=== PATIENT | female | born 1945 | race Caucasian/White ===

== ENCOUNTER → 2019-01-15 | Outpatient (CLI) | payer OTHER ==
[~2019-01-15] MED LIST: FOLI1TAB15 PO; GLIM1TAB3 PO; METF-446 PO; MULT-415 PO; PRAV20TA4 PO; TOPI25TA48 PO; WARF2.5T85 PO
== END | disposition home or self-care (01) ==
LOC: RAH 12:40
PROVIDERS: ATTEND Nurse Practitioner Adult Health
DX: M79.605 Pain in left leg (principal); M25.552 Pain in left hip
CPT/HCPCS: 73502; 93971

== ENCOUNTER 2019-12-20 09:52 | Inpatient (IN) | payer OTHER ==
[~2019-12-20] VITALS: Ht 162.6 cm; Wt 129.7 kg
[~2019-12-20 09:52] MED LIST changes: +GLIM1TAB18 PO; -GLIM1TAB3 PO
[2019-12-20 10:46] LABS: BASOPHILS % (AUTO) 0.4 % (0.0-5.0); EOSINOPHILS % (AUTO) 1.8 % (0.0-8.0); HEMATOCRIT 35.1 % (36-48); LYMPHOCYTES % (AUTO) 32.3 % (21.0-51.0); MEAN CORPUSCULAR HEMOGLOBIN 37.3 pg (27.0-33.0); MEAN CORPUSCULAR VOLUME 112.9 fL (79-99); MONOCYTES % (AUTO) 15.8 % (3.0-13.0); NEUTROPHILS % (AUTO) 49.5 % (40.0-77.0); PLATELET COUNT (AUTO) 157 K/uL (130-400); RED BLOOD CELL COUNT(AUTO) 3.11 MIL/uL (4.00-5.50); RED CELL DISTRIBUTION WIDTH 15.4 % (11.0-15.5); WHITE BLOOD COUNT (AUTO) 5.1 K/uL (4.8-10.8)
[2019-12-20 10:55] LABS: CREATININE 1.1 mg/dL (0.5-1.5); POTASSIUM 4.2 mmol/L (3.5-5.1)
[2019-12-20 10:59] LABS: ALBUMIN 2.9 g/dL (3.5-5.0); BILIRUBIN,DIRECT 0.3 mg/dL (0.0-0.3); TOTAL PROTEIN, SERUM 7.1 g/dL (6.0-8.3)
[2019-12-20 11:53] LABS: PARTIAL THROMBOPLASTIN TIME 71.1 SEC (26.3-35.5)
[2019-12-20 11:59] LABS: INR > 7.00 (0.85-1.15); PROTHROMBIN TIME > 63.0 SEC (9.6-11.6)
[2019-12-20] MEDS ORDERED: PHYTONADIONE 10 MG/1 ML AMP ONE (12:15)
[2019-12-20] MEDS ORDERED: HYDROCODONE/ACETAMINOPHEN 5/325 MG TAB PO PRN (13:15)
[2019-12-20] MEDS ORDERED: ONDANSETRON HCL 4 MG/2 ML VIAL IV PRN (13:15)
[2019-12-20] MEDS ORDERED: ACETAMINOPHEN 325 MG TAB PO PRN (13:15)
[2019-12-20] MEDS ORDERED: NITROGLYCERIN 0.4 MG SL TAB SL PRN (13:15)
[2019-12-20] MEDS ORDERED: LACTULOSE 20 GM/30 ML UDCUP PO PRN (13:15)
[2019-12-20 13:19] LABS: APPEARANCE,URINE Cloudy (CLEAR); BILIRUBIN,URINE Small (NEGATIVE); COLOR,URINE Dark Yellow (YELLOW); GLUCOSE, URINE (UA) Negative (NEGATIVE); KETONES,URINE Trace mg/dL (NEGATIVE); LEUKOCYTE ESTERASE ,URINE Trace (NEGATIVE); NITRATE,URINE Negative (NEGATIVE); OCCULT BLOOD,URINE Large (NEGATIVE); PROTEIN,URINE Trace mg/dL (NEGATIVE)
[2019-12-20 13:55] LABS: URIC ACID CRYSTALS,URINE Moderate /LPF (None Seen)
[2019-12-20 13:56] LABS: BACTERIA,URINE Moderate /HPF (None Seen)
[2019-12-20 13:57] LABS: CALCIUM OXALATE CRYSTALS,UR Few /LPF (None Seen); SQUAMOUS EPITHELIAL CELL,UR 30-50 /HPF (0-2)
[2019-12-20 14:15] VITALS: BP 123/89
[2019-12-20] MEDS ORDERED: LINA5TAB PO (16:06)
[2019-12-20] MEDS ORDERED: GLIM2TAB30 PO (16:06)
[2019-12-20] MEDS ORDERED: MECO10005 PO (16:06)
[2019-12-20] MEDS ORDERED: GLUC-145 PO (16:06)
[2019-12-20] MEDS ORDERED: MV-M1TAB20 PO (16:06)
[2019-12-20] MEDS ORDERED: METF-446 PO (16:06)
[2019-12-20] MEDS ORDERED: OMEP20TA2 PO (16:06)
--- NOTE | 2019-12-20 16:11 | NUR ---
SPOKE WITH PUJA FROM DR. VELASQUEZ OFFICE, MADE AWARE OF PENDING CONSULT
[2019-12-20 16:48] VITALS: BP 130/61
[2019-12-20] MEDS ORDERED: FAMOTIDINE 20MG TAB 20 MG TAB ONE (18:51)
[2019-12-20] MEDS: FAMOTIDINE 20MG TAB 20 MG TAB PO SCH (19:41)
[2019-12-20 20:00] VITALS: BP 116/54
[2019-12-21] VITALS: BP 139/64
[2019-12-21 04:00] VITALS: BP 123/69
[2019-12-21 05:38] LABS: BASOPHILS % (AUTO) 0.5 % (0.0-5.0); EOSINOPHILS % (AUTO) 3.2 % (0.0-8.0); HEMATOCRIT 31.6 % (36-48); LYMPHOCYTES % (AUTO) 32.5 % (21.0-51.0); MEAN CORPUSCULAR HGB CONC 33.2 g/dL (32.0-36.0); MEAN CORPUSCULAR VOLUME 111.3 fL (79-99); MONOCYTES % (AUTO) 17.4 % (3.0-13.0); NEUTROPHILS % (AUTO) 46.2 % (40.0-77.0); PLATELET COUNT (AUTO) 142 K/uL (130-400); RED BLOOD CELL COUNT(AUTO) 2.84 MIL/uL (4.00-5.50); RED CELL DISTRIBUTION WIDTH 15.1 % (11.0-15.5); WHITE BLOOD COUNT (AUTO) 4.4 K/uL (4.8-10.8)
[2019-12-21 05:58] LABS: POTASSIUM 4.1 mmol/L (3.5-5.1)
[2019-12-21 05:59] LABS: PROTHROMBIN TIME > 63.0 SEC (9.6-11.6)
[2019-12-21 06:00] LABS: INR > 7.00 (0.85-1.15)
--- NOTE | 2019-12-21 06:05 | NUR ---
paged hospitalist for critical value PT of 63 and INR greater than 7. pending call back
--- NOTE | 2019-12-21 07:50 | NUR ---
ASSESSMENT PT IS AAOX3, DENIES CP DENIES SOB DENIES NV NO COMPLAINTS AT THIS TIME, RESTING SITTING UPRIGHT IN BED, CALL LIGHT WITHIN REACH.
[2019-12-21 08:30] VITALS: BP 136/76
--- NOTE | 2019-12-21 11:00 | NUR ---
DR ALCALA ROUNDED SAW PATIENT, ORDERS RECEIVED
[2019-12-21] MEDS: INSULIN HUMULIN R 100 UNIT/ML 3ML SQ SCH ×3 (11:30→20:24)
[2019-12-21] MEDS ORDERED: PHYTONADIONE 10 MG/1 ML AMP IM SCH (11:30)
[2019-12-21] MEDS: CYANOCOBALAMIN (VITAMIN B-12) 1,000 MCG TABLET PO SCH (12:21)
[2019-12-21] MEDS: FOLIC ACID 1 MG TABLET PO SCH (12:21)
[2019-12-21] MEDS: MULTIVITAMIN TABLET PO SCH (12:21)
[2019-12-21 12:56] VITALS: BP 130/66
[2019-12-21 16:50] VITALS: BP 122/63
[2019-12-21] MEDS: FAMOTIDINE 20MG TAB 20 MG TAB PO SCH (19:32)
[2019-12-21 20:19] VITALS: BP 127/72
[2019-12-22 00:20] VITALS: BP 123/66
--- NOTE | 2019-12-22 01:00 | NUR ---
TRANSFER OF CARE REPORT RECEIVED FROM SUE CRUZ TO ASSUME CARE OF PT. PT SLEEPING ON THE RECLINED ON ROUNDS, SYMMETRICAL CHEST EXPANSION, NO SIGNS OF DISCOMFORT. RUNNING NSR IN THE 80'S IN THE MONITOR, NO ECTOPIES NOTED.
[2019-12-22 04:20] VITALS: BP 94/60
[2019-12-22 06:27] LABS: BASOPHILS % (AUTO) 0.4 % (0.0-5.0); EOSINOPHILS % (AUTO) 2.6 % (0.0-8.0); HEMATOCRIT 32.4 % (36-48); LYMPHOCYTES % (AUTO) 32.5 % (21.0-51.0); MEAN CORPUSCULAR HEMOGLOBIN 36.3 pg (27.0-33.0); MEAN CORPUSCULAR VOLUME 109.8 fL (79-99); MONOCYTES % (AUTO) 16.4 % (3.0-13.0); NEUTROPHILS % (AUTO) 47.9 % (40.0-77.0); PLATELET COUNT (AUTO) 154 K/uL (130-400); RED BLOOD CELL COUNT(AUTO) 2.95 MIL/uL (4.00-5.50); RED CELL DISTRIBUTION WIDTH 15.2 % (11.0-15.5); WHITE BLOOD COUNT (AUTO) 4.6 K/uL (4.8-10.8)
[2019-12-22 06:31] LABS: INR 1.96 (0.85-1.15); PARTIAL THROMBOPLASTIN TIME 38.1 SEC (26.3-35.5); PROTHROMBIN TIME 20.6 SEC (9.6-11.6)
[2019-12-22 06:34] LABS: HEMOGLOBIN A1C 7.5 % (4.0-6.0)
[2019-12-22 06:43] LABS: POTASSIUM 3.9 mmol/L (3.5-5.1)
[2019-12-22] MEDS: INSULIN HUMULIN R 100 UNIT/ML 3ML SQ SCH ×3 (07:01→11:51)
[2019-12-22 08:34] VITALS: BP 126/65
[2019-12-22] MEDS: CYANOCOBALAMIN (VITAMIN B-12) 1,000 MCG TABLET PO SCH (09:08)
[2019-12-22] MEDS: FOLIC ACID 1 MG TABLET PO SCH (09:08)
[2019-12-22] MEDS: MULTIVITAMIN TABLET PO SCH (09:08)
[2019-12-22] MEDS ORDERED: WARFARIN SODIUM 5 MG TAB PO SCH (11:22)
[2019-12-22 11:45] VITALS: BP 117/58
--- NOTE | 2019-12-22 12:53 | NUR ---
cm note pt resides at home alone, independent with adls/self care. no dme. dc plan is back home. no dcneeds. Addendum: 12/22/19 at 1255 by KATHE SOLIMAN CM Amended: Links added.
--- NOTE | 2019-12-22 13:07 | NUR ---
DISCHARGE DISCHARGE INSTRUCTIONS GIVEN TO PATIENT, VERBALIZED UNDERSTANDING. IV DISCONTINUED. TELEPAK REMOVED.
[2019-12-23] MEDS ORDERED: WARFARIN SODIUM 2.5 MG TAB PO SCH (16:00)
== END 2019-12-22 13:26 | disposition home or self-care (01) | DRG 151 ==
LOC: EDH 09:52 → EDHIP 13:08 → 4DH 13:48 → 4CH 12-22 04:35
PROVIDERS: ADMIT Internal Medicine; ATTEND Internal Medicine
DX: R04.0 Epistaxis (principal); Z68.42 Body mass index [BMI] 45.0-49.9, adult; T45.515A Adverse effect of anticoagulants, initial encounter; Z86.718 Personal history of other venous thrombosis and embolism; Z86.711 Personal history of pulmonary embolism; E11.9 Type 2 diabetes mellitus without complications; E66.01 Morbid (severe) obesity due to excess calories; Z90.710 Acquired absence of both cervix and uterus; Z82.5 Family history of asthma and other chronic lower respiratory diseases; Z83.3 Family history of diabetes mellitus; Z82.49 Family history of ischemic heart disease and other diseases of the circulatory system; I10 Essential (primary) hypertension; Y92.89 Other specified places as the place of occurrence of the external cause
CPT/HCPCS: 36415; 80048; 80076; 81001; 82550; 82948; 83036; 85025; 85610; 85730; 87088; 87426; 93005; G0378; J3430; U0003

== ENCOUNTER → 2020-09-07 | Outpatient (CLI) | payer MEDICARE ==
[~2020-09-07] MED LIST changes: +ASPI-1005 PO; +ATOR40TA69 PO; +CYAN500T46 PO; +FOLI0.8T3 PO; -GLIM1TAB18 PO; +GLIM2TAB30 PO; +GLUC-145 PO; +GLUC-29 PO; +LINA5TAB PO; +MECO10005 PO; +MULT-1367 PO; +MV-M1TAB20 PO; +OMEP2.5S2 PO; +OMEP20TA2 PO; -PRAV20TA4 PO; +RIVA10TA PO; +RIVA1TAB PO; -TOPI25TA48 PO
[2020-09-07 09:04] LABS: INR 1.1 (0.85-1.15); PROTHROMBIN TIME 11.9 SEC (9.6-11.6)
[2020-09-07 09:05] LABS: PARTIAL THROMBOPLASTIN TIME 25.1 SEC (26.3-35.5)
== END | disposition home or self-care (01) ==
LOC: RAH 07:59
PROVIDERS: ATTEND Otolaryngology Plastic Surgery within the Head & Neck
DX: D14.2 Benign neoplasm of trachea (principal); Z79.01 Long term (current) use of anticoagulants
CPT/HCPCS: 85610; 85730

== ENCOUNTER → 2020-10-29 | Outpatient (CLI) | payer MEDICARE ==
[2020-10-29 15:56] LABS: CREATININE 1.2 mg/dL (0.5-1.5)
== END | disposition home or self-care (01) ==
LOC: LAB 14:52
PROVIDERS: ATTEND Otolaryngology Plastic Surgery within the Head & Neck
DX: J39.8 Other specified diseases of upper respiratory tract (principal)
CPT/HCPCS: 36415; 82565; 84520

== ENCOUNTER → 2020-11-03 | Outpatient (CLI) | payer MEDICARE ==
[~2020-11-03] MED LIST changes: +IOHEXOL-350 50ML VIAL IV ONE
== END | disposition home or self-care (01) ==
LOC: RAH 10:38
PROVIDERS: ATTEND Otolaryngology Plastic Surgery within the Head & Neck
DX: J39.8 Other specified diseases of upper respiratory tract (principal)
CPT/HCPCS: 71260; Q9967

== ENCOUNTER 2020-12-24 18:16 | Emergency (ER) | payer MEDICARE ==
[~2020-12-24] VITALS: Ht 162.6 cm; Wt 118.8 kg
[~2020-12-24 18:16] MED LIST changes: -IOHEXOL-350 50ML VIAL IV ONE
[2020-12-24 20:00] LABS: APPEARANCE,URINE CLOUDY (CLEAR); BILIRUBIN,URINE SMALL (NEGATIVE); COLOR,URINE AMBER (YELLOW); GLUCOSE, URINE (UA) NEGATIVE (NEGATIVE); KETONES,URINE 5 mg/dL (NEGATIVE); LEUKOCYTE ESTERASE ,URINE NEGATIVE (NEGATIVE); NITRATE,URINE NEGATIVE (NEGATIVE); OCCULT BLOOD,URINE LARGE (NEGATIVE); PROTEIN,URINE 100 mg/dL (NEGATIVE); UROBILINOGEN,URINE 0.2 mg/dL (0.2-1.0)
[2020-12-24 20:10] LABS: RBC,URINE >100 /HPF (0-1)
[2020-12-24 20:11] LABS: BACTERIA,URINE Few /HPF (None Seen); SQUAMOUS EPITHELIAL CELL,UR Few /HPF (0-2); YEAST,URINE BUDDING Rare /HPF (None Seen)
[2020-12-24 20:12] LABS: AMORPHOUS SEDIMENT,UR Few /LPF (None Seen)
[2020-12-24 20:29] LABS: BASOPHILS % (AUTO) 0.5 % (0.0-5.0); HEMATOCRIT 25.2 % (36-48); LYMPHOCYTES % (AUTO) 34.4 % (21.0-51.0); MEAN CORPUSCULAR HEMOGLOBIN 34.2 pg (27.0-33.0); MEAN CORPUSCULAR HGB CONC 31.3 g/dL (32.0-36.0); MEAN CORPUSCULAR VOLUME 109.1 fL (79-99); MONOCYTES % (AUTO) 15.6 % (3.0-13.0); NEUTROPHILS % (AUTO) 47.3 % (40.0-77.0); PLATELET COUNT (AUTO) 155 K/uL (130-400); RED BLOOD CELL COUNT(AUTO) 2.31 MIL/uL (4.00-5.50); RED CELL DISTRIBUTION WIDTH 18.2 % (11.0-15.5)
[2020-12-24 20:40] LABS: CREATININE 1.2 mg/dL (0.5-1.5); POTASSIUM 4.3 mmol/L (3.5-5.1)
[2020-12-24 20:45] LABS: ALBUMIN 2.6 g/dL (3.5-5.0); BILIRUBIN,TOTAL 0.8 mg/dL (0.2-1.0); PARTIAL THROMBOPLASTIN TIME 49.5 SEC (26.3-35.5); TOTAL PROTEIN, SERUM 6.7 g/dL (6.0-8.3)
[2020-12-24 20:49] LABS: INR 4.82 (0.85-1.15); PROTHROMBIN TIME 45.5 SEC (9.6-11.6)
[2020-12-24] MEDS ORDERED: MACR100 PO (21:12)
[2020-12-24 21:27] VITALS: BP 110/76
== END 2020-12-24 21:30 | disposition home or self-care (01) ==
LOC: EDH 18:16
DX: R31.9 Hematuria, unspecified (principal); R79.1 Abnormal coagulation profile; R39.15 Urgency of urination; E11.9 Type 2 diabetes mellitus without complications; I50.9 Heart failure, unspecified; Z79.01 Long term (current) use of anticoagulants; Z79.82 Long term (current) use of aspirin; Z88.5 Allergy status to narcotic agent; Z79.84 Long term (current) use of oral hypoglycemic drugs; Z79.899 Other long term (current) drug therapy; Z86.73 Personal history of transient ischemic attack (TIA), and cerebral infarction without residual deficits
CPT/HCPCS: 36415; 80053; 81001; 85025; 85610; 85730; 87077; 87088; 87186

== ENCOUNTER → 2022-05-31 | Outpatient (CLI) | payer MEDICARE ==
[~2022-05-31] MED LIST changes: +MACR100 PO
== END | disposition home or self-care (01) ==
LOC: LAB 11:52
PROVIDERS: ATTEND Internal Medicine Cardiovascular Disease
DX: I10 Essential (primary) hypertension (principal)
CPT/HCPCS: 36415; 83880

== ENCOUNTER → 2022-06-07 | Outpatient (CLI) | payer MEDICARE | END | disposition home or self-care (01) | LOC: LAB 08:38 | PROVIDERS: ATTEND Internal Medicine Cardiovascular Disease | DX: I10 Essential (primary) hypertension (principal) | CPT/HCPCS: 36415; 80048; 83880 ==

== ENCOUNTER 2022-10-04 04:10 | Emergency (ER) | payer MEDICARE ==
[~2022-10-04] VITALS: Ht 162.6 cm; Wt 99.8 kg
[2022-10-04 04:43] LABS: BASOPHILS % (AUTO) 0.8 % (0.0-5.0); EOSINOPHILS % (AUTO) 2.2 % (0.0-8.0); HEMATOCRIT 27.5 % (36-48); LYMPHOCYTES % (AUTO) 27.1 % (21.0-51.0); MEAN CORPUSCULAR HEMOGLOBIN 38.4 pg (27.0-33.0); MEAN CORPUSCULAR HGB CONC 33.1 g/dL (32.0-36.0); MONOCYTES % (AUTO) 15.7 % (3.0-13.0); NEUTROPHILS % (AUTO) 53.9 % (40.0-77.0); PLATELET COUNT (AUTO) 156 K/uL (130-400); RED BLOOD CELL COUNT(AUTO) 2.37 MIL/uL (4.00-5.50); RED CELL DISTRIBUTION WIDTH 15.6 % (11.0-15.5); WHITE BLOOD COUNT (AUTO) 3.7 K/uL (4.8-10.8)
[2022-10-04 04:58] LABS: ALBUMIN 2.6 g/dL (3.5-5.0); CREATININE 1.2 mg/dL (0.5-1.5); POTASSIUM 4.1 mmol/L (3.5-5.1); TOTAL PROTEIN, SERUM 6.6 g/dL (6.0-8.3)
[2022-10-04 05:32] LABS: APPEARANCE,URINE CLOUDY (CLEAR); BILIRUBIN,URINE NEGATIVE (NEGATIVE); COLOR,URINE LIGHT-ORANGE (YELLOW); GLUCOSE, URINE (UA) NEGATIVE (NEGATIVE); KETONES,URINE 5 mg/dL (NEGATIVE); LEUKOCYTE ESTERASE ,URINE 25 Leu/uL (NEGATIVE); NITRATE,URINE NEGATIVE (NEGATIVE); OCCULT BLOOD,URINE LARGE (NEGATIVE); PROTEIN,URINE 30 mg/dL (NEGATIVE); UROBILINOGEN,URINE 0.2 mg/dL (0.2-1.0)
[2022-10-04 05:36] LABS: RBC,URINE TNTC /HPF (0-1); SQUAMOUS EPITHELIAL CELL,UR RARE /HPF (0-2)
[2022-10-04] MEDS ORDERED: MACR100 PO (06:02)
[2022-10-04] MEDS ORDERED: IOHEXOL 350 MG/ML 100ML INFUS..BTL IV ONE (06:48)
[2022-10-04 09:31] VITALS: BP 115/47; PULSE 80; RESP 18; O2SAT 96
== END 2022-10-04 09:32 | disposition home or self-care (01) ==
LOC: EDH 04:10
DX: N39.0 Urinary tract infection, site not specified (principal); R31.9 Hematuria, unspecified; E11.9 Type 2 diabetes mellitus without complications; Z79.01 Long term (current) use of anticoagulants; Z79.82 Long term (current) use of aspirin; Z79.84 Long term (current) use of oral hypoglycemic drugs; Z79.899 Other long term (current) drug therapy; Z88.5 Allergy status to narcotic agent
CPT/HCPCS: 99285; 74177; 80053; 85025; 81001; 36415; Q9967